=== PATIENT | male | born 1985 | race Caucasian/White ===

== ENCOUNTER 2020-10-11 06:47 | Emergency (ER) | payer MEDICAID, OTHER ==
[~2020-10-11] VITALS: Ht 167.6 cm; Wt 78.0 kg
[2020-10-11] MEDS ORDERED: OXYCODONE HCL/ACETAMINOPHEN 5/325MG TABLET PO ONE (07:15)
[2020-10-11 07:21] VITALS: BP 128/78
[2020-10-11] MEDS ORDERED: TOPUD PO (08:27)
== END 2020-10-11 08:38 | disposition home or self-care (01) ==
LOC: ER 06:47
DX: S40.021A Contusion of right upper arm, initial encounter (principal); F12.10 Cannabis abuse, uncomplicated; W18.30XA Fall on same level, unspecified, initial encounter; Y93.89 Activity, other specified; Y92.89 Other specified places as the place of occurrence of the external cause; Y99.8 Other external cause status
CPT/HCPCS: 29125; 73080; 73090; 73110; 99284

== ENCOUNTER 2021-01-28 15:32 | Emergency (ER) | payer MEDICAID ==
[~2021-01-28 15:32] MED LIST: TOPUD PO
== END 2021-01-28 15:50 | disposition left against medical advice (07) ==
LOC: ER 15:32
DX: Z53.21 Procedure and treatment not carried out due to patient leaving prior to being seen by health care provider (principal)

== ENCOUNTER 2021-06-20 23:39 | Emergency (ER) | payer MEDICAID ==
[~2021-06-20] VITALS: Ht 165.1 cm; Wt 77.0 kg
[2021-06-21] MEDS ORDERED: TETANUS, DIPHTHERIA, PERTUSSIS VAC/PF 0.5ML (>10YR OLD) IM ONE (00:30)
[2021-06-21] MEDS ORDERED: ACETAMINOPHEN 325MG TABLET PO ONE (00:30)
[2021-06-21] MEDS ORDERED: BACITRACIN ZINC OINT UDPKT TOP ONE (00:30)
[2021-06-21] MEDS ORDERED: LIDOCAINE HCL/EPINEPHRINE 1%-EPI 1:100,000 20 ML VIAL INFIL ONE (00:30)
[2021-06-21 04:02] VITALS: BP 129/66
== END 2021-06-21 04:03 | disposition home or self-care (01) ==
LOC: ER 23:58
DX: S01.81XA Laceration without foreign body of other part of head, initial encounter (principal); X99.8XXA Assault by other sharp object, initial encounter; Y93.89 Activity, other specified; Y92.59 Other trade areas as the place of occurrence of the external cause
CPT/HCPCS: 12013; 70450; 70486; 90471; 90715; 99284; J3490; Z7610